=== PATIENT | male | born 1955 | race Two or more races ===

== ENCOUNTER 2018-04-13 05:47 | Day surgery (SDC) | payer OTHER ==
[2018-04-13] MEDS: CYCLOPENTOLATE/PHENYLEPH 2 ML OPH OPER (05:57)
[2018-04-13] MEDS: MOXIFLOXACIN 0.5% 3 ML OPH OPER (05:58)
[2018-04-13] MEDS: DICLOFENAC 0.1% 2.5 ML OPH OPER (05:58)
[2018-04-13] MEDS: TROPICAMIDE 1% 3 ML OPH OPER (05:58)
[2018-04-13] MEDS: SOD CHLORIDE 0.9% 1,000 ML IV (06:01)
[2018-04-13] MEDS ORDERED: GENTAMICIN 80 MG INJ (07:05)
[2018-04-13] MEDS: CARBACHOL 0.01% 1.5 ML OPH INJ (07:05)
[2018-04-13] MEDS ORDERED: LIDOCAINE 4% (MPF) 5 ML INJ (07:05)
[2018-04-13] MEDS: CEFAZOLIN 1 GM INJ (07:05)
[2018-04-13] MEDS: DEXAMETHASONE 4 MG/ML 1 ML INJ (07:05)
[2018-04-13] MEDS ORDERED: EPINEPHrine 1 MG INJ (07:05)
[2018-04-13] MEDS ORDERED: TETRACAINE 0.5% 4 ML OPH (07:05)
[2018-04-13] MEDS ORDERED: ONDANSETRON 4 MG INJ IV (08:00)
[2018-04-13] MEDS ORDERED: LABETALOL HCL 20MG INJ IV (08:00)
[2018-04-13] MEDS ORDERED: FENTAnyl 50 MCG/ML VIAL IV ×2 (08:00)
[2018-04-13] MEDS ORDERED: DIPHENHYDRAMINE 50 MG INJ IV (08:00)
[2018-04-13] MEDS ORDERED: hydrALAzine 20 MG INJ IV (08:00)
[2018-04-13] MEDS ORDERED: HYDROmorphONE 1 MG/5 ML IV SYRINGE IV ×2 (08:00)
[2018-04-13] MEDS ORDERED: MEPERIDINE 25 MG INJ IV (08:00)
[2018-04-13] MEDS ORDERED: METOCLOPRAMIDE 10 MG INJ IV (08:00)
[2018-04-13] MEDS ORDERED: EPHEDrine SULFATE 50 MG/5 ML SYG IV (08:00)
[2018-04-13] MEDS ORDERED: MIDAZOLAM 1 MG/ML 2 ML INJ (08:01)
[2018-04-13] MEDS ORDERED: FENTAnyl 50 MCG/ML VIAL (08:01)
[2018-04-13] MEDS ORDERED: METOCLOPRAMIDE 10 MG INJ (08:15)
[2018-04-13] MEDS ORDERED: ONDANSETRON 4 MG INJ (08:15)
[2018-04-13] MEDS ORDERED: PROPOFOL 20 ML (08:15)
[2018-04-14] MEDS ORDERED: INFLUENZA VIRUS VACCINE 0.5 ML (DISPENSING) IM* (10:00)
== END 2018-04-13 09:40 | disposition home or self-care (01) ==
LOC: SDS 05:47
DX: H25.11 Age-related nuclear cataract, right eye (principal); E11.9 Type 2 diabetes mellitus without complications; E78.5 Hyperlipidemia, unspecified; J44.9 Chronic obstructive pulmonary disease, unspecified
CPT/HCPCS: 66984; 82962

== ENCOUNTER 2018-11-16 05:48 | Day surgery (SDC) | payer OTHER ==
[2018-11-16] MEDS: CYCLOPENTOLATE/PHENYLEPH 2 ML OPH OPER (06:13)
[2018-11-16] MEDS: TROPICAMIDE 1% 15 ML OPH OPER (06:13)
[2018-11-16] MEDS: DICLOFENAC 0.1% 2.5 ML OPH OPER (06:13)
[2018-11-16] MEDS: MOXIFLOXACIN 0.5% 3 ML OPH OPER (06:13)
[2018-11-16] MEDS: SOD CHLORIDE 0.9% 1,000 ML IV (06:14)
[2018-11-16] MEDS ORDERED: LIDOCAINE 4% (MPF) 5 ML INJ (07:10)
[2018-11-16] MEDS ORDERED: GENTAMICIN 80 MG INJ (07:10)
[2018-11-16] MEDS ORDERED: EPINEPHrine 1 MG INJ (07:10)
[2018-11-16] MEDS: CEFAZOLIN 1 GM INJ (07:10)
[2018-11-16] MEDS: CARBACHOL 0.01% 1.5 ML OPH INJ (07:10)
[2018-11-16] MEDS: DEXAMETHASONE 4 MG/ML 1 ML INJ (07:10)
[2018-11-16] MEDS ORDERED: TETRACAINE 0.5% 4 ML OPH (07:10)
[2018-11-16] MEDS ORDERED: NA HYALURONATE/CHONDROITIN 0.5 ML SYG (07:11)
[2018-11-16] MEDS ORDERED: LIDOCAINE 1% (MPF) 10 ML INJ (07:11)
[2018-11-16] MEDS ORDERED: FENTAnyl 50 MCG/ML VIAL (07:38)
[2018-11-16] MEDS ORDERED: MIDAZOLAM 1 MG/ML 2 ML INJ (07:38)
[2018-11-16] MEDS ORDERED: PROPOFOL 20 ML (08:09)
[2018-11-16] MEDS ORDERED: LIDOCAINE 2% (SDV) 5 ML INJ (08:09)
[2018-11-16] MEDS ORDERED: ONDANSETRON 4 MG INJ IV (08:30)
[2018-11-16] MEDS ORDERED: FENTAnyl 50 MCG/ML VIAL IV (08:30)
[2018-11-16] MEDS ORDERED: HYDROmorphONE 1 MG/5 ML IV SYRINGE IV ×2 (08:30)
[2018-11-16] MEDS ORDERED: MEPERIDINE 25 MG INJ IV (08:30)
[2018-11-16] MEDS ORDERED: DIPHENHYDRAMINE 50 MG INJ IV (08:30)
== END 2018-11-16 09:36 | disposition home or self-care (01) ==
LOC: SDS 05:48
DX: H25.12 Age-related nuclear cataract, left eye (principal); E11.9 Type 2 diabetes mellitus without complications; I10 Essential (primary) hypertension; Z79.84 Long term (current) use of oral hypoglycemic drugs
CPT/HCPCS: 66984; 82962